=== PATIENT | male | born 1980 | race Asian ===

== ENCOUNTER 2019-06-28 02:33 | Emergency (ER) | payer OTHER ==
[~2019-06-28] VITALS: Ht 170.2 cm; Wt 83.9 kg
[2019-06-28 02:35] VITALS: BP 154/111; Ht 170.2 cm; Wt 83.9 kg
== END 2019-06-28 02:53 | disposition other institution (70) ==
LOC: ED 02:33
DX: Z02.89 Encounter for other administrative examinations (principal)